=== PATIENT | female | born 1965 | race Caucasian/White ===

== ENCOUNTER → 2020-01-31 | Outpatient (CLI) | payer BC, OTHER ==
[~2020-01-31] MED LIST: ADVAIR HFA115 MCG/21; ALOSETRON HCL0.5 MG; APAP/CODEINE ELI5 M1 OR; ASPIR 8181 MG PO; AUGMENTIN 875875 MG PO; BENTYL 10 MG CA10 MG; CALCIUM 600 +1 EAC1 PO; CHROMIUM400 MCG PO; COLCHICINE0.6 MG PO; COUMADIN 1MG TAB1 M1; COUMADIN7.5 MG PO; COZAAR 25 MG TA25 M1 PO; DIFLUCAN150 MG PO; DOXYCYCLINE 10100 M2 PO; ELMIRON PO; ENOXAPARIN120 MG/0.1 SUBQ; FLECTOR PATCH1 EA TP; FLONASE 0.05%50 MCG NASAL; FOLIC ACID1 MG PO; GAS RELIEF 8080 MG PO; GLUCOPHAGE1000 MG PO; HUMALOG PE100 UNIT/1 SC; HUMALOG PE100 UNIT/M SC; HUMALOG100 UNIT/1; HYDROXYCHLOROQ200 M1 PO; IMURAN 50MG TAB50 M1 PO; KEFLEX500 M1 PO; KLOR-CON 1010 MEQ PO; LASIX 20 MG TAB20 MG PO; LASIX 40 MG TAB40 M2 PO; LASIX 80 MG TAB80 MG PO; LEVALBUTER1.25 MG/0. INH; LEVEMIR; LEVOTHROID200 MCG PO; LEVOTHYROXIN0.025 MG PO; LOESTRIN FE 1-1 EACH PO; LOTRONEX0.5 MG PO; LUPRON DEPOT3.75 M2 IM; MACRODANTIN100 MG; MAGNESIUM500 MG PO; METFORMIN HCL500 MG PO; METHOTREXATE 22.5 MG PO; MICARDIS HCT 81 EACH PO; NEUPRO1 EAC1; NIACIN 500 MG500 M1 PO; PERIDEX 0.12%473 M1 SSP; PHENERGAN 25 MG25 M1 PO; POTASSIUM20 PO; PREDNISONE 10 M10 MG PO; PREDNISONE 20 M20 M1 PO; PRILOSEC10 MG PO; SINGULAIR 10 MG10 M1 PO; VENTOLIN17 GM INH; VICTOZA0.6 MG/0.1; VITAMIN D 5050000 I1 PO; WELLBUTRIN XL300 MG PO; ZETIA10 MG PO; ZPAK PO
== END ==
LOC: ULTRA 11:56
DX: R60.0 Localized edema (principal); M79.605 Pain in left leg

== ENCOUNTER 2020-02-10 05:51 | Emergency (ER) | payer BC, OTHER ==
[~2020-02-10] VITALS: Ht 177.8 cm; Wt 117.9 kg
--- NOTE | ~2020-02-10 | EMS ---
[address] [address] EMS Patient Care Report Name: SONAL CARRILLO Room #: REG SHIVAM Wiley#: [id number] Admission: 02/10/20 Attend Phys: Discharge: Date of : 65 Report #: [id number] THIS REPORT FOR: //name// Report Transmitted: 02/10/2020 05:49 EMS Care Summary [facility] Incident [id number] @ 02/10/2020 04:57 Incident Location [address] [place] [address] Patient SONAL CARRILLO Female, 54 Years 1965 Patient Address [address] [place] [address] Patient History Asthma,Congestive Heart Failure (CHF),Diabetes,Multiple Sclerosis, Patient Allergies No known allergies, Patient Medications Levothyroxine, Metformin, Tramadol, Methotrexate, Humalog, Bupropion, ASA, Fluoxetine, Omeprazole, Flexeril, Lasix, Niacin, Chief Complaint Throat swellind and dry Disposition Transported No Lights/[place] Dispatch Reason Allergic Reaction/Stings Transported To [facility] Narrative C - Throat swelling and soreness. H - [id number] arrived on scene to a local residence to find Ms. Carrillo a 54 y/o [facility] [address] [place] [address] EMS Patient Care Report Name: SONAL CARRILLO Room #: DELANEY Wiley#: [id number] Admission: 02/10/20 Attend Phys: Discharge: Date of : 65 Report #: [id number] female found sitting on the edge of her bed in a back bedroom. Ms. Carrillo was found CAOx4 and able to speak in full and complete sentences. The patient was initially found moderately anxious upon our arrival, but after talking to the patient she was able to calm quickly. The patient reported at approx. 0200 this morning she felt like her throat was starting to swell shut. She reported that she took Benadryl at that time and reported some relief in the swelling sensation. Upon our arrival Ms. Carrillo reported that it felt like her throat was very dry and she reported that it felt like she was so dry that she was unable to swallow. The patient's was located on scene and our crew was able to ask if the patient's voice sounded muffled, hoarse, or any different and he reported that she sounds normal to him. No stridor, redness, or swelling was noted upon assessment of the patient's mouth, tongue, and upper throat. Ms. Carrillo denied any N/v, diarrhea, abdominal pain, SOB, dizziness, rash, itching, burning, hives, or any pain/discomfort throughout. Ms. Carrillo reported that she has recently started two new medicines recent in flexiril and tramadol for a back injury that she has been dealing with. The patient reported that she has been taking her flexiril over the past ten days and reported that she started the tramadol at 1400 on the . Ms. Carrillo denied any previous medicine allergies and she reported that this is the first time that she has taken tramadol. The patient denied any other recent habit changes (i.e. food, laundry detergent, shampoo or body wash). The patient continued to report improvement in her overall condition as our crew simply continued to talk to her. R - Initial assessment, physical examination, V/s with EKG, continued reassessment. T - No change was noted in the patient's presentation or V/s during transport. The patient was moved over into bed in ED room via sheet drag without incident with report given to ED RN. Initial Vitals @05:35P: 87,BP: 137/88,SpO2: 97, @05:22P: 85,R: 18,BP: 170/87,GCS: 15,SpO2: 99,Revised Trauma: 12,[place] Suspected: false @05:45P: 80,R: 16,BP: 128/48,Pain: 6/10,GCS: 15,SpO2: 99,Revised Trauma: 12, @PTAP: 90,R: 20,BP: 178/108,Pain: 8/10,GCS: 15,Glucose: 100,SpO2: 98,Revised Trauma: 12, Assessments @05:13MENTAL:Person Oriented,Time Oriented,Place Oriented,Event Oriented,SKIN:HEENT:Head/Face: No Abnormalities,LUNG SOUNDS:ABDOMEN:PELVIS//GI:EXTREMITIES:Left Arm: No Abnormalities,Right Arm: No Abnormalities,Left Leg: No Abnormalities,Right Leg: No Abnormalities,PULSE:NEURO: [facility] [address] [place] [address] EMS Patient Care Report Name: SONAL CARRILLO Room #: REG ER Saurabh#: [id number] Admission: 02/10/20 Attend Phys: Discharge: Date of : 65 Report #: [id number] Impression Anxiety reaction/Emotional upset Procedures @05:25Saline Lock 0cc (20 ga) Site: Hand-RightResponse: UnchangedFailed Timeline [employer]NAGER,BP: 178/108 M,PULSE: 90,RR: 20 R,SPO2: 98 Ox,ETCO2: ,B,PAIN: 8,GCS: 15, 04:57,Call Received 04:57,Psap Call 04:57,Dispatched 04:59,En Route 05:08,On Scene 05:12,At Patient 05:22,BP: 170/87 M,PULSE: 85,RR: 18 R,SPO2: 99 Ox,ETCO2: ,BG: ,PAIN: ,GCS: 15, 05:23,Depart Scene 05:25,Saline Lock 0cc 20 ga Site: Hand-Right,Response: UnchangedFailed, 05:35,BP: 137/88 M,PULSE: 87,RR: R,SPO2: 97 Ox,ETCO2: ,BG: ,PAIN: ,GCS: , 05:45,At Destination 05:45,BP: 128/48 M,PULSE: 80,RR: 16 R,SPO2: 99 Ox,ETCO2: ,BG: ,PAIN: 6,GCS: 15, 05:59,Call Closed Disclaimer v1.1 Copyright 2020 [employer] This EMS Care Summary contains data elements from the applicable legal record (which may be displayed differently). It is designed to provide pertinent information for the following purposes: continuity of care, clinical quality, and state data reporting. The complete legal record is available to ED staff and administrators of the receiving hospital in [employer] Patient Tracker. All data is provided "as is."
[~2020-02-10 05:51] MED LIST changes: -NEUPRO1 EAC1; +NEUPRO1 EAC1 TOP
[2020-02-10] MEDS ORDERED: TRAMADOL 50 MG50 MG PO (06:19)
[2020-02-10] MEDS ORDERED: CYCLOBENZAPRINE10 MG PO (06:20)
[2020-02-10] MEDS ORDERED: ALEVE220 M1 PO (06:20)
[2020-02-10] MEDS ORDERED: BUPROPION XL450 MG PO (06:21)
[2020-02-10] MEDS ORDERED: CULTURELLE CAP1 EAC1 PO (06:22)
[2020-02-10] MEDS ORDERED: FARXIGA10 MG PO (06:23)
[2020-02-10] MEDS ORDERED: PROZAC20 M1 PO (06:24)
[2020-02-10] MEDS ORDERED: FISH OIL 1,0001 EAC9 PO (06:24)
[2020-02-10] MEDS ORDERED: FLONASE 0.05%50 MCG NASAL (06:25)
[2020-02-10 06:28] LABS: HEMATOCRIT 41.2 % (37.0-47.0); HEMOGLOBIN 13.1 gm/dL (12.0-15.0); MCH 29.4 pg (26.0-34.0); MCHC 31.7 g/dL (28.0-37.0); MCV 92.7 fL (80.0-100.0); PLATELET COUNT 264 thou/uL (150-400); RBC 4.44 mil/uL (4.20-5.00); RDW 30.3 % (10.5-14.5); WBC 9.1 thou/uL (4.0-11.0)
[2020-02-10] MEDS ORDERED: METFORMIN HCL500 M3 PO (06:28)
[2020-02-10] MEDS ORDERED: MIRALAX119 GM PO (06:29)
[2020-02-10] MEDS ORDERED: ADIPEX-P37.5 MG PO (06:30)
[2020-02-10] MEDS ORDERED: PROMETRIUM200 MG PO (06:31)
[2020-02-10] MEDS ORDERED: REPATHA SU140 MG/1 M SUBQ (06:32)
[2020-02-10 06:33] LABS: CALCIUM 8.9 mg/dL (8.5-10.1); POTASSIUM 4.2 mmol/L (3.5-5.1)
[2020-02-10 06:39] LABS: ALBUMIN 3.9 g/dL (3.4-5.0); TOTAL BILIRUBIN 0.4 mg/dL (<0.1-1.0)
[2020-02-10] MEDS ORDERED: PREDNISONE 20 M20 M1 PO (07:07)
[2020-02-10 07:30] VITALS: BP 156/87
[2020-02-10 08:00] LABS: ABSOLUTE NEUTROPHILS 5.1 thou/uL (1.4-8.2); METAMYELOCYTES 1 %
[2020-02-10 08:01] LABS: ANISOCYTOSIS 3+
== END 2020-02-10 07:30 | disposition home or self-care (01) ==
LOC: ER 05:51
PROVIDERS: Emergency Medicine
DX: B37.2 Candidiasis of skin and nail (principal); T40.4X5A Adverse effect of other synthetic narcotics, initial encounter; Y92.89 Other specified places as the place of occurrence of the external cause; E11.9 Type 2 diabetes mellitus without complications; E03.9 Hypothyroidism, unspecified; I50.9 Heart failure, unspecified; Z90.49 Acquired absence of other specified parts of digestive tract; Z79.4 Long term (current) use of insulin; Z86.711 Personal history of pulmonary embolism; Z88.2 Allergy status to sulfonamides; Z88.5 Allergy status to narcotic agent